=== PATIENT | female | born 1955 | race Caucasian/White ===

== ENCOUNTER 2017-04-22 12:51 | Emergency (ER) | payer MEDICARE ==
[~2017-04-22] VITALS: Ht 152.4 cm; Wt 60.0 kg
[~2017-04-22 12:51] MED LIST: ASPI81 PO; CYCL-36 PO; ENAL5TAB98 PO; GABA300 PO; GLUCTAB PO; LORT5TAB PO; NEUR600T PO; NORV2.5T11 PO; PROT40TA PO; SIMV20 PO; SUCR1TAB6 PO; WELL150T PO
[2017-04-22 12:53] VITALS: BP 173/95; PULSE 87; RESP 14; TEMP 97.9; O2SAT 99
[2017-04-22 13:23] VITALS: BP 155/73; PULSE 84; RESP 18; O2SAT 97
[2017-04-22] MEDS ORDERED: VITA1000 PO (13:28)
[2017-04-22] MEDS ORDERED: AMLO2.5T PO (13:28)
[2017-04-22 13:45] VITALS: BP_SYST 155; BP_SYST 173; BP_DIAS 73; BP_DIAS 95; PULSE 81; RESP 18; O2SAT 97
[2017-04-22] MEDS ORDERED: SODIUM CHLORIDE 0.9% FLUSH 10 ML FLUSH IVF PRN (13:45)
[2017-04-22 13:55] LABS: AUTOMATED NEUTROPHIL # 4.6 TH/MM3 (1.8-7.7); BASOPHIL # 0.1 TH/MM3 (0-0.2); BASOPHIL % 0.9 % (0.0-2.0); EOSINOPHIL # 0.2 TH/MM3 (0-0.4); EOSINOPHIL % 2.6 % (0.0-4.0); HEMATOCRIT 41.3 % (35.0-46.0); HEMOGLOBIN 14.4 GM/DL (11.6-15.3); LYMPH % 27.5 % (9.0-44.0); MEAN CELL VOLUME 88.6 FL (80.0-100.0); MEAN CORPUSCULAR HEMOGLOBIN 30.9 PG (27.0-34.0); MEAN CORPUSCULAR HGB CONC 34.9 % (32.0-36.0); MEAN PLATELET VOLUME 9.6 FL (7.0-11.0); MONOCYTE # 0.5 TH/MM3 (0-0.9); PLATELET COUNT 216 TH/MM3 (150-450); RED BLOOD COUNT 4.66 MIL/MM3 (4.00-5.30); RED CELL DISTRIBUTION WIDTH 13.6 % (11.6-17.2); WHITE BLOOD COUNT 7.3 TH/MM3 (4.0-11.0)
[2017-04-22] MEDS ORDERED: VESI5TAB2 PO (14:04)
[2017-04-22] MEDS ORDERED: METF1000 PO (14:04)
[2017-04-22] MEDS ORDERED: METH500T3 PO (14:04)
[2017-04-22] MEDS ORDERED: FLUT50SP EACH NARE (14:04)
[2017-04-22] MEDS ORDERED: ASPI1TAB57 PO (14:04)
[2017-04-22] MEDS ORDERED: SIMV20TA PO (14:04)
[2017-04-22] MEDS ORDERED: NON-500T13 PO (14:04)
[2017-04-22] MEDS ORDERED: CALC1TAB87 PO (14:04)
[2017-04-22] MEDS ORDERED: BAYETES (14:04)
[2017-04-22] MEDS ORDERED: GABA300C5 PO (14:04)
[2017-04-22] MEDS ORDERED: PANT40TA3 PO (14:04)
[2017-04-22] MEDS ORDERED: VITA500T4 PO (14:04)
[2017-04-22] MEDS ORDERED: NITR0.4S SL (14:04)
[2017-04-22] MEDS ORDERED: ENAL2.5T PO (14:04)
[2017-04-22 14:06] LABS: PROTHROMBIN TIME - PATIENT 10.4 SEC (9.8-11.6)
[2017-04-22 14:14] LABS: BICARBONATE 24.7 MEQ/L (21.0-32.0); BLOOD UREA NITROGEN 20 MG/DL (7-18); CALCIUM 9.9 MG/DL (8.5-10.1); CHLORIDE 106 MEQ/L (98-107); CREATININE 0.58 MG/DL (0.50-1.00); GLOMERULAR FILTRATION RATE 106 ML/MIN (>89); GLUCOSE,RANDOM 95 MG/DL (74-106); MAGNESIUM 2.2 MG/DL (1.5-2.5); SODIUM (NA) 142 MEQ/L (136-145); TROPONIN I LESS THAN 0.02 NG/ML (0.02-0.05)
--- NOTE | 2017-04-22 14:25 | RADRPT ---
EXAM DATE/TIME: 04/22/2017 13:46 [place] COMPARISON: CHEST SINGLE AP, March 28, 2009, 10:28. INDICATIONS : Pain in right anterior chest today, pain in throat, no shortness of breath MEDICAL HISTORY : None. SURGICAL HISTORY : Cholecystectomy. ENCOUNTER: Initial ACUITY: 1 day PAIN SCORE: 5/10 LOCATION: Bilateral chest FINDINGS: A single view of the chest demonstrates the lungs to be symmetrically aerated without evidence of mas s, infiltrate or effusion. The cardiomediastinal contours are unremarkable. Osseous structures are intact. CONCLUSION: No acute disease. No significant change has occurred. Titi Vasques MD on April 22, 2017 at 14:23 Board Certified Radiologist. This report was verified electronically.
--- NOTE | 2017-04-22 16:51 | PD ---
HPI Chief Complaint: Chest Pain Time Seen by Provider: 13:15 Travel History International Travel<30 days: No Contact w/Intl Traveler<30days: No Traveled to known affect area: No History of Present Illness HPI The patient 61 years old and after finishing her morning exercise routine sat down for coffee at her gym and developed pain in the right shoulder right scapular distribution right chest. It lasted about 15 minutes. It was severe at the time. She is not diaphoretic nauseated and dizzy. Onset was just prior to ER arrival. She reports very vague persistent mild pain in the ER. She is a history of hypertension hyperlipidemia and diabetes along with coronary artery disease in her family. PFSH Past Medical History Arthritis: Yes Asthma: No Autoimmune Disease: Yes Blood Disorders: No Anxiety: No Depression: No Heart Rhythm Problems: No Cancer: No Cardiac Catheterization: Yes (12/2006) Cardiovascular Problems: Yes High Cholesterol: Yes Chemotherapy: No Chest Pain: No Congestive Heart Failure: No COPD: No Cerebrovascular Accident: No Diabetes: Yes Patient Takes Glucophage: Yes Diminished Hearing: No Endocrine: Yes Gastrointestinal Disorders: Yes GERD: Yes Glaucoma: No Genitourinary: No Headaches: Yes Hepatitis: No Hiatal Hernia: Yes Hypertension: Yes Immune Disorder: No Kidney Stones: No Medical other: Yes (FIBROMYALGIA) Musculoskeletal: Yes Neurologic: No Psychiatric: No Reproductive: No Respiratory: No Migraines: No Myocardial Infarction: No Radiation Therapy: No Renal Failure: No Seizures: No Sickle Cell Disease: No Sleep Apnea: No Thyroid Disease: No Ulcer: No Influenza Vaccination: Yes Menopausal: Yes Past Surgical History Abdominal Surgery: Yes (CHOLECYSTECTOMY) AICD: No Appendectomy: No Arteriovenous Shunt: No Body Medical Devices: LUPUS Cardiac Surgery: No Cholecystectomy: Yes Coronary Artery Bypass Graft: No Ear Surgery: No Endocrine Surgery: No Eye Surgery: Yes (CATARACT) Genitourinary Surgery: No Gynecologic Surgery: Yes (HYSTERECTOMY) Hysterectomy: Yes Insulin Pump: No Joint Replacement: No Oral Surgery: No Pacemaker: No Thoracic Surgery: No Other Surgery: Yes (BILAT. FOOT SURGERY) Social History Alcohol Use: No Tobacco Use: No Substance Use: No Allergies-Medications (Allergen,Severity, Reaction): Coded Allergies: clopidogrel (Unverified Allergy, Severe, Swelling, 04/22/17) oxycodone (Unverified Allergy, Severe, 04/22/17) hydroxychloroquine (Unverified Allergy, Mild, 04/22/17) ibuprofen (Unverified Allergy, Mild, ABDOMINAL PAIN, 04/22/17) lansoprazole (Unverified Allergy, Mild, DIZZY, 04/22/17) metoclopramide (Unverified Allergy, Mild, 04/22/17) lisinopril (Verified Allergy, Unknown, 04/22/17) morphine (Verified Allergy, Unknown, 04/22/17) Reported Meds & Prescriptions Reported Meds & Active Scripts Active Reported Vitamin B-12 (Cyanocobalamin) 500 Mcg Tab 500 Mcg PO DAILY Vesicare (Solifenacin) 5 Mg Tab 5 Mg PO DAILY Non-Aspirin Pain Relief ES (Acetaminophen) 500 Mg Tab 1,000 Mg PO Q4-6H PRN Simvastatin 20 Mg Tab 20 Mg PO HS Pantoprazole (Pantoprazole Sodium) 40 Mg Tab 40 Mg PO BID Nitrostat SL (Nitroglycerin) 0.4 Mg Subl 0.4 Mg SL DIRECTED PRN 1 tablet under the tongue as needed for chest pain. Repeat every 5 minutes for a total of 3 DOSES or call 911 if NO relief. Methocarbamol 500 Mg Tab 250 Mg PO TID Metformin (Metformin HCl) 1,000 Mg Tab 1,000 Mg PO BIDPC Gabapentin 300 Mg Cap 300 Mg PO TID Fluticasone Nasal [place] 50 Mcg/Act Naspr 50 Mcg EACH NARE DAILY 50 mcg/spray Enalapril (Enalapril Maleate) 2.5 Mg Tab 2.5 Mg PO DAILY Calcium 600 with Vitamin D (Calcium Carbonate-Cholecalciferol) 600-400 mg-Unit Tab 1 Tab PO DAILY Everardo Contour Blood Glucose Strips (Blood Glucose Test Strips) Strip Strip 1 Strip .ROUTE DIRECTED Aspirin 81 (Aspirin) 81 Mg Tabdr 81 Mg PO DAILY Amlodipine (Amlodipine Besylate) 2.5 Mg Tab 2.5 Mg PO DAILY Vitamin D-1000 (Cholecalciferol) 1,000 Unit Tab 1,000 Units PO DAILY Review of Systems Except as stated in HPI: all other systems reviewed are Neg Physical Exam Narrative GENERAL: 61 yo F, WNWD, AOx3 SKIN: Warm and dry. HEAD: Atraumatic. Normocephalic. EYES: Pupils equal and round. No scleral icterus. No injection or drainage. ENT: No nasal bleeding or discharge. Mucous membranes pink and moist. NECK: Trachea midline. No JVD. CARDIOVASCULAR: Regular rate and rhythm. RESPIRATORY: No accessory muscle use. Clear to auscultation. Breath sounds equal bilaterally. GASTROINTESTINAL: Abdomen soft, non-tender, nondistended. Hepatic and splenic margins not palpable. MUSCULOSKELETAL: Extremities without clubbing, cyanosis, or edema. No obvious deformities. NEUROLOGICAL: Awake and alert. No obvious cranial nerve deficits. Motor grossly within normal limits. Five out of 5 muscle strength in the arms and legs. Normal speech. PSYCHIATRIC: Appropriate mood and affect; insight and judgment normal. Data Data Last Documented VS Vital Signs Date Time Temp Pulse Resp B/P (MAP) Pulse Ox O2 Delivery O2 Flow Rate FiO2 04/22/17 13:45 81 18 173/95 (121) 97 Room Air 155/73 (100) 04/22/17 12:53 97.9 VS reviewed Orders Orders Electrocardiogram (04/22/17 13:36) Basic Metabolic Panel (Bmp) (04/22/17 13:36) Ckmb (Isoenzyme) Profile (04/22/17 13:36) Complete Blood Count With Diff (04/22/17 13:36) Magnesium (Mg) (04/22/17 13:36) Prothrombin Time / Inr (Pt) (04/22/17 13:36) Act Partial Throm Time (Ptt) (04/22/17 13:36) Troponin I (04/22/17 13:36) Chest, Single Ap (04/22/17 13:36) Ecg Monitoring (04/22/17 13:36) Bilateral Bp Monitoring (04/22/17 13:36) Iv Access Insert/Monitor (04/22/17 13:36) Oximetry (04/22/17 13:36) Oxygen Administration (04/22/17 13:36) Sodium Chloride 0.9% Flush (Ns Flush) (04/22/17 13:45) Troponin I (04/22/17 15:36) Ed Discharge Order (04/22/17 17:01) Labs Laboratory Tests Test 04/22/17 13:40 04/22/17 16:00 White Blood Count 7.3 TH/MM3 Red Blood Count 4.66 MIL/MM3 Hemoglobin 14.4 GM/DL Hematocrit 41.3 % Mean Corpuscular Volume 88.6 FL Mean Corpuscular Hemoglobin 30.9 PG Mean Corpuscular Hemoglobin Concent 34.9 % Red Cell Distribution Width 13.6 % Platelet Count 216 TH/MM3 Mean Platelet Volume 9.6 FL Neutrophils (%) (Auto) 62.0 % Lymphocytes (%) (Auto) 27.5 % Monocytes (%) (Auto) 7.0 % Eosinophils (%) (Auto) 2.6 % Basophils (%) (Auto) 0.9 % Neutrophils # (Auto) 4.6 TH/MM3 Lymphocytes # (Auto) 2.0 TH/MM3 Monocytes # (Auto) 0.5 TH/MM3 Eosinophils # (Auto) 0.2 TH/MM3 Basophils # (Auto) 0.1 TH/MM3 CBC Comment DIFF FINAL Differential Comment Prothrombin Time 10.4 SEC Prothromb Time International Ratio 1.0 RATIO Activated Partial Thromboplast Time 27.8 SEC Blood Urea Nitrogen 20 MG/DL Creatinine 0.58 MG/DL Random Glucose 95 MG/DL Calcium Level 9.9 MG/DL Magnesium Level 2.2 MG/DL Sodium Level 142 MEQ/L Potassium Level 4.3 MEQ/L Chloride Level 106 MEQ/L Carbon Dioxide Level 24.7 MEQ/L Anion Gap 11 MEQ/L Estimat Glomerular Filtration Rate 106 ML/MIN Total Creatine Kinase 85 U/L Troponin I LESS THAN 0.02 NG/ML LESS THAN 0.02 NG/ML MDM Medical Decision Making Medical Screen Exam Complete: Yes Emergency Medical Condition: Yes Medical Record Reviewed: Yes Differential Diagnosis NSTEMI, unstable angina, coronary vasospasm, PE, PTX, aortic dissection, pericarditis, myocarditis, endocarditis, PNA, esophageal disease, aneurysm, musculoskeletal etiologies, anxiety, cocaine/sympathomimetic abuse Narrative Course CBC & BMP Diagram 04/22/17 13:40 Calcium Level 9.9, Magnesium Level 2.2 Troponin is negative 2 The EKG reveals a sinus rhythm with T-wave inversions in lead III which appear stable in comparison to 2009 The patient's ALEXANDER risk score is high however given the very atypical nature of her complaint of having it's unlikely she has acute coronary syndrome but should nonetheless undergo evocative evaluation. The patient has verbalized agreement to follow-up with Dr. aguilar and/or her primary care doctor with in the next few days without fail with the negative troponins twice 2 hours apart patient is considered reasonably safe for discharge. Diagnosis Primary Impression: Atypical chest pain Referrals: Tommy Aguilar MD 1 day Med/Other Pt SpecificInfo: No Change to Meds Disposition: 01 DISCHARGE HOME Condition: Stable Daron Monzon MD Apr 22, 2017 16:51
[2017-04-22 17:24] VITALS: BP 120/74
--- NOTE | 2017-04-23 14:53 | EKG ---
Date Performed: 04/22/2017 Time Performed: 13:34:07 PTAGE: 61 years EKG: Sinus rhythm Since previous tracing, no significant change noted NORMAL ECG PREVIOUS TRACING : 03/28/2009 16.20 DOCTOR: Chuck Ferrer Interpretating Date/Time 04/23/2017 14:51:23
== END 2017-04-22 17:12 | disposition home or self-care (01) ==
LOC: NEPC 12:51
DX: R07.9 Chest pain, unspecified (principal); E11.9 Type 2 diabetes mellitus without complications; E78.00 Pure hypercholesterolemia, unspecified; K21.9 Gastro-esophageal reflux disease without esophagitis; I10 Essential (primary) hypertension; Z79.84 Long term (current) use of oral hypoglycemic drugs; Z79.899 Other long term (current) drug therapy
CPT/HCPCS: 71010; 80048; 82550; 83735; 84484; 85025; 85610; 85730; 93005; 99285